=== PATIENT | female | born 1945 | race Caucasian/White ===

== ENCOUNTER 2017-04-04 20:08 | Emergency (ER) | payer MEDICARE ==
[2017-04-04 20:16] VITALS: TEMP 97.9
--- NOTE | 2017-04-04 21:18 | C.PDOC ---
History Of Present Illness 71 year old female with a Hx IDDM who presents to the ER after an episode of 5 minutes of diminished mental status. Patient states she had slurred speech and was not able to talk. Patient reports her condition improved after drinking some juice; denies weakness, numbness, or fever. Time Seen by Provider: 04/04/17 20:31 Chief Complaint (Nursing): Weakness/Neurological Deficit History Per: Patient History/Exam Limitations: no limitations Onset/Duration Of Symptoms: Mins, Sudden Onset Current Symptoms Are (Timing): Gone Seizure Or Post-ictal Symptoms: None Fall Associated With With Symptoms: No Recent travel outside of the [place]: No - Symptoms Of CVA Associated Symptoms: Impaired Speech. denies: Seizure Activity, New Vision Deficit(Left), New Vision Deficit(Right), Decreased Ability To Walk, New Confusion, Other Past Medical History Reviewed: Historical Data, Nursing Documentation, Vital Signs Vital Signs: Last Vital Signs Temp 97.9 F 04/04/17 21:56 Pulse 67 04/04/17 21:56 Resp 18 04/04/17 21:56 BP 152/79 H 04/04/17 21:56 Pulse Ox 98 04/04/17 21:56 - Medical History PMH: COPD, HTN, Hypercholesterolemia Surgical History: CABG, Coronary Stent Family History: States: Unknown Family Hx - Social History Hx Alcohol Use: No Hx Substance Use: No Review Of Systems Constitutional: Negative for: Fever Neurological: Positive for: Change in Speech. Negative for: Weakness, Numbness Physical Exam - Physical Exam Appears: Non-toxic, No Acute Distress Skin: Normal Color, Warm, Dry Head: Atraumatic, Normacephalic Eye(s): bilateral: Normal Inspection, PERRL, EOMI Oral Mucosa: Moist Chest: Symmetrical, No Tenderness Cardiovascular: Rhythm Regular, No Murmur Respiratory: Normal Breath Sounds, No Rales, No Rhonchi, No Wheezing Gastrointestinal/Abdominal: Soft, No Tenderness Neurological/Psych: Oriented x3, Normal Speech, Normal Cognition ED Course And Treatment - Laboratory Results Result Diagrams: 04/04/17 21:12 04/04/17 21:12 Lab Interpretation: Abnormal (mild chronic anemia) ECG Interpretation: Abnormal (refused by family) O2 Sat by Pulse Oximetry: 97 (Room air) Pulse Ox Interpretation: Normal - CT Scan/US CT Head Other Rad Studies (CT/US): Read By Radiologist, Radiology Report Reviewed CT/US Interpretation: IMPRESSION: - No acute findings seen within the brain. - See above for remaining findings. Progress Note: Blood work, EKG, and CXR ordered. Reevaluation Time: 21:36 Reassessment Condition: Improved (remains asymptomatic) - Physician Consult Information Outcome Of Conversation: [id number]: d/w Dr. Coreen Claros- PMD- will follow in office tomorrow Medical Decision Making Medical Decision Making: family refused cxr, ekg, UA, and prefers to leave ED and f/u with PMD tomorrow pt asymptomatic and likely smptoms related to transient hypoglycemia in DM relieved by PO juice/fluids FISH[employer] POT Disposition Doctor Will See Patient In The: Office Counseled Patient/Family Regarding: Studies Performed, Diagnosis - Disposition Referrals: Humza Claros MD [Staff Provider] - Disposition: HOME/ ROUTINE Disposition Time: 21:38 Condition: GOOD Additional Instructions: please follow-up with Dr. Claros tomorrow check finger-stick and give juice/soda in case of dip in blood glucose. Instructions: Diabetic Hypoglycemia (ED), Altered Mental Status (ED) Forms: zhouwu (Latvian) - Clinical Impression Clinical Impression: Change in mental state, Hypoglycemia associated with diabetes - Scribe Statement The provider has reviewed the documentation as recorded by the Scribe Tom Ochoa All medical record entries made by the Scribe were at my direction and personally dictated by me. I have reviewed the chart and agree that the record accurately reflects my personal performance of the history, physical exam, medical decision making, and the department course for this patient. I have also personally directed, reviewed, and agree with the discharge instructions and disposition.
[2017-04-04 21:19] LABS: BASO # 0.1 K/uL (0.0-0.2); BASO % 0.7 % (0.0-2.0); EOS # 0.2 K/uL (0.0-0.7); EOS % 2.8 % (0.0-4.0); HEMATOCRIT 30.3 % (34.0-47.0); LYMPH # 2.9 K/uL (1.0-4.3); LYMPH % 32.6 % (20.0-40.0); MEAN CELL VOLUME 86.2 fL (81.0-99.0); MEAN CORPUSCULAR HEMOGLOBIN 28.5 pg (27.0-31.0); MONO # 0.6 K/uL (0.0-0.8); RED CELL DISTRIBUTION WIDTH 14.7 % (11.5-14.5); WHITE BLOOD COUNT 8.8 K/uL (4.8-10.8)
--- NOTE | 2017-04-04 21:22 | CT ---
EXAM: CT Head Without Intravenous Contrast CLINICAL HISTORY: 71 years old, female; Signs and symptoms; Speech disturbance; Additional info: Slurred speech TECHNIQUE: Axial computed tomography images of the head/brain without intravenous contrast. This CT exam was performed using one or more of the following dose reduction techniques: automated exposure control, adjustment of the mA and/or kV according to patient size, and/or use of iterative reconstruction technique. EXAM DATE/TIME: 04/04/2017 8:30 PM COMPARISON: No relevant prior studies available. FINDINGS: BRAIN: Focal areas of low density are seen in the basal ganglia bilaterally and the deep/periventricular white matter, most compatible with multiple old/chronic lacunar infarcts. Areas of hypodensity seen in the white matter bilaterally, nonspecific in appearance, but most likely representing chronic small vessel ischemic changes, in a patient of this age. Diffuse, marked, age-related cortical atrophy and ventriculomegaly. No significant acute abnormality identified. No acute hemorrhage seen within the brain. No acute extra-axial fluid collections visualized. No evidence of significant mass effect within the brain.No CT findings to suggest an acute, large territorial infarct, however, small or early acute infarcts may not be visible on CT. VENTRICLES: See above. BONES/JOINTS: Findings compatible with old/chronic fractures involving the right medial orbital and right orbital floor. SOFT TISSUES: No acute abnormality of the visualized soft tissues is seen. VASCULATURE: Atherosclerotic calcification. SINUSES: Visualized paranasal sinuses appear clear. MASTOID AIR CELLS: Mastoid air cells appear clear. IMPRESSION: - No acute findings seen within the brain. - See above for remaining findings.
[2017-04-04 21:33] LABS: POTASSIUM 4.2 mmol/L (3.6-5.2)
[2017-04-04 21:35] LABS: ALB/GLOB RATIO 1.1 (1.0-2.1); BILIRUBIN,TOTAL 0.6 mg/dL (0.2-1.3); TOTAL PROTEIN 7.2 g/dL (6.3-8.3)
[2017-04-04 21:36] LABS: CALCIUM 8.6 mg/dl (8.6-10.4)
[2017-04-04 21:47] LABS: TROPONIN I 0.082 ng/mL (0.00-0.120)
[2017-04-04 21:57] VITALS: BP 152/79; PULSE 67; RESP 18
[2017-04-06 00:39] VITALS: O2SAT 97
== END 2017-04-04 21:58 | disposition home or self-care (01) ==
LOC: C.ER 20:08
DX: E11.649 Type 2 diabetes mellitus with hypoglycemia without coma (principal); Z79.4 Long term (current) use of insulin; J44.9 Chronic obstructive pulmonary disease, unspecified; I10 Essential (primary) hypertension; E78.00 Pure hypercholesterolemia, unspecified

== ENCOUNTER 2017-12-29 13:00 | Inpatient (IN) | payer MEDICARE ==
[2017-12-29 13:12] VITALS: BMI 16.9
[2017-12-29 13:57] LABS: INR 1.1; PROTHROMBIN TIME 12.3 SECONDS (9.7-12.2)
[2017-12-29 14:04] LABS: BASO % 0.3 % (0.0-2.0); EOS # 0.1 K/uL (0.0-0.7); EOS % 2.1 % (0.0-4.0); LYMPH # 1.6 K/uL (1.0-4.3); MEAN CELL VOLUME 84.6 fL (81.0-99.0); MEAN CORPUSCULAR HEMOGLOBIN 27.3 pg (27.0-31.0); MEAN CORPUSCULAR HGB CONC 32.3 g/dL (33.0-37.0); MONO # 0.3 K/uL (0.0-0.8); MONO % 4.8 % (0.0-10.0); NEUT # 4.1 K/uL (1.8-7.0); NEUT % 66.8 % (50.0-75.0); RBC 4.05 Mil/uL (3.80-5.20); RED CELL DISTRIBUTION WIDTH 17.3 % (11.5-14.5); WHITE BLOOD COUNT 6.1 K/uL (4.8-10.8)
[2017-12-29 14:08] LABS: ALBUMIN 4.3 g/dL (3.5-5.0); CALCIUM 9.3 mg/dl (8.6-10.4)
[2017-12-29 14:17] LABS: TROPONIN I 0.033 ng/mL (0.00-0.120)
--- NOTE | 2017-12-29 14:33 | RAD ---
PROCEDURE: CHEST RADIOGRAPH, 1 VIEW HISTORY: Chest pain COMPARISON: None available. FINDINGS: LUNGS: The lungs are well inflated. There is mild pulmonary venous congestion. PLEURA: No pneumothorax. Suspect small left pleural effusion. CARDIOVASCULAR: There is mild cardiomegaly. Status post CABG. OSSEOUS STRUCTURES: No significant abnormalities. VISUALIZED UPPER ABDOMEN: Normal. OTHER FINDINGS: None. IMPRESSION: The constellation of findings may represent mild congestive heart failure.
--- NOTE | 2017-12-29 15:18 | C.PDOC ---
Time Seen by Provider: 12/29/17 13:22 Chief Complaint (Nursing): Chest Pain History Per: Patient, Family Onset/Duration Of Symptoms: Days (about 2 weeks), Intermittent Episodes Current Symptoms Are (Timing): Worse Severity: Moderate Quality: Pressure, "Pain" Associated Symptoms: Dyspnea Modifying Factors: Other Indicated Below Exacerbating Factors: Exertion Alleviating Factors: Rest Additional History Per: Prior Records Past Medical History Reviewed: Historical Data, Nursing Documentation, Vital Signs Vital Signs: Last Vital Signs Temp 98.2 F 12/29/17 13:10 Pulse 64 12/29/17 13:10 Resp 18 12/29/17 13:10 BP 143/64 12/29/17 13:10 Pulse Ox 100 12/29/17 13:10 - Medical History PMH: COPD, Diabetes, HTN, Hypercholesterolemia Surgical History: CABG (triple bypass 2016), Coronary Stent (x2) Family History: States: Unknown Family Hx - Social History Hx Alcohol Use: No Hx Substance Use: No Review Of Systems Except As Marked, All Systems Reviewed And Found Negative. Constitutional: Negative for: Fever Cardiovascular: Positive for: Chest Pain, Edema Respiratory: Positive for: SOB with Excertion. Negative for: Cough Gastrointestinal: Negative for: Vomiting, Abdominal Pain Musculoskeletal: Negative for: Neck Pain Neurological: Negative for: Weakness, Numbness Physical Exam - Physical Exam Appears: No Acute Distress, Chronically Ill Skin: Warm, Dry Head: Atraumatic, Normacephalic Eye(s): bilateral: PERRL, EOMI Neck: Normal ROM, Supple Cardiovascular: Rhythm Regular Respiratory: Normal Breath Sounds, No Accessory Muscle Use Gastrointestinal/Abdominal: Soft, No Tenderness Back: No CVA Tenderness Extremity: Normal ROM, Pedal Edema Neurological/Psych: Oriented x3, Normal Motor, Normal Sensation ED Course And Treatment - Laboratory Results Result Diagrams: 12/29/17 13:38 12/29/17 13:38 Interpretation Of Abnormal: Elevated BNP ECG: Interpreted By Me, Viewed By Me ECG Rhythm: Sinus Rhythm, ST/T Changes (nonspecific), Nonspecific Changes ECG Interpretation: Abnormal Rate From EC O2 Sat by Pulse Oximetry: 100 Pulse Ox Interpretation: Normal - Radiology CXR: Viewed By Me, Read By Radiologist CXR Interpretation: Yes: Cardiomegaly Progress - Interventions Interventions:: Observation - Medications Administered Oral: Aspirin (Pt took at home prior to arrival) Intravenous: Diuretic - Data Reviewed Data Reviewed: Lab, Diagnostic imaging, EKG, Old records - Patient Status Patient status: Unchanged - Continuity of Care Discussed patient case with:: Patient, Family-HIPPA compliant, ED Nurse, PMD - Patient Plan Patient Plan: Admission, Telemetry Disposition Discussed With : Humza Claros Comment: He accepted pt on his service. Doctor Will See Patient In The: Hospital Counseled Patient/Family Regarding: Studies Performed, Diagnosis - Disposition Disposition: HOSPITALIZED Disposition Time: 15:21 Condition: GUARDED - Clinical Impression Clinical Impression: Exertional chest pain, CHF (congestive heart failure)
--- NOTE | 2017-12-29 18:51 | CP.PCM.HP ---
Past Patient History - Past Medical History & Family History Past Medical History?: Yes - Past Social History Smoking Status: Never Smoked - CARDIAC Hx Cardiac Disorders: Yes Hx Hypercholesterolemia: Yes Hx Hypertension: Yes Hx Peripheral Edema: Yes - PULMONARY Hx Respiratory Disorders: Yes Hx Asthma: Yes Hx Chronic Obstructive Pulmonary Disease (COPD): Yes - NEUROLOGICAL Hx Neurological Disorder: No - HEENT Hx HEENT Problems: Yes Other/Comment: wear glasses for reading - RENAL Hx Chronic Kidney Disease: No - ENDOCRINE/METABOLIC Hx Endocrine Disorders: Yes Hx Diabetes Mellitus Type 2: Yes Hx Hypothyroidism: Yes - HEMATOLOGICAL/ONCOLOGICAL Hx Blood Disorders: No - INTEGUMENTARY Hx Dermatological Problems: Yes Other/Comment: dry,scaly skin on lower legs - MUSCULOSKELETAL/RHEUMATOLOGICAL Hx Musculoskeletal Disorders: Yes Hx Arthritis: Yes Hx Falls: Yes - GASTROINTESTINAL Hx Gastrointestinal Disorders: No - GENITOURINARY/GYNECOLOGICAL Hx Genitourinary Disorders: No - PSYCHIATRIC Hx Psychophysiologic Disorder: No Hx Substance Use: No - SURGICAL HISTORY Hx Surgeries: Yes Hx Coronary Artery Bypass Graft: Yes (triple bypass 2015) Hx Coronary Stent: Yes (x2) - ANESTHESIA Hx Anesthesia: Yes Meds Allergies/Adverse Reactions: Allergies Allergy/AdvReac Type Severity Reaction Status Date / Time No Known Allergies Allergy Verified 04/04/17 20:25 Physical Exam - Constitutional Appears: Well - Head Exam Head Exam: ATRAUMATIC, NORMAL INSPECTION, NORMOCEPHALIC - Eye Exam Eye Exam: EOMI, Normal appearance, PERRL Pupil Exam: NORMAL ACCOMODATION, PERRL - ENT Exam ENT Exam: Mucous Membranes Moist, Normal Exam - Neck Exam Neck exam: Positive for: Normal Inspection - Respiratory Exam Respiratory Exam: Decreased Breath Sounds - Cardiovascular Exam Cardiovascular Exam: REGULAR RHYTHM, +S1, +S2 - GI/Abdominal Exam GI & Abdominal Exam: Diminished Bowel Sounds, Soft - Rectal Exam Rectal Exam: Deferred Results - Vital Signs Recent Vital Signs: Last Vital Signs Temp 98.1 F 12/29/17 17:10 Pulse 72 12/29/17 17:35 Resp 20 12/29/17 17:10 BP 155/83 H 12/29/17 17:10 Pulse Ox 96 12/29/17 17:10 - Labs Result Diagrams: 12/29/17 13:38 12/29/17 13:38 Labs: Laboratory Results - last 24 hr 12/29/17 12/29/17 12/29/17 13:38 13:38 13:38 WBC 6.1 RBC 4.05 Hgb 11.0 Hct 34.2 MCV 84.6 MCH 27.3 MCHC 32.3 L RDW 17.3 H Plt Count 137 MPV 10.0 Neut % (Auto) 66.8 Lymph % (Auto) 26.0 [place] % (Auto) 4.8 Eos % (Auto) 2.1 Baso % (Auto) 0.3 Neut # (Auto) 4.1 Lymph # (Auto) 1.6 [place] # (Auto) 0.3 Eos # (Auto) 0.1 Baso # (Auto) 0.0 PT 12.3 H INR 1.1 APTT 30 Sodium 141 Potassium 4.4 Chloride 99 Carbon Dioxide 27 Anion Gap 20 BUN 34 H Creatinine 1.3 H Est GFR ( Amer) 48 Est GFR (Non-Af Amer) 40 Random Glucose 253 H Calcium 9.3 Total Bilirubin 0.7 AST 26 ALT 16 Alkaline Phosphatase 76 Troponin I 0.0330 NT-Pro-B Natriuret Pep 9800 H Total Protein 8.5 H Albumin 4.3 Globulin 4.2 H Albumin/Globulin Ratio 1.0
[2017-12-29 22:24] LABS: CK-MB 4.06 ng/mL (0.0-3.38); TROPONIN I 0.032 ng/mL (0.00-0.120)
[2017-12-30] MEDS: Levothyroxine 75 MCG TAB PO SCH (06:27)
[2017-12-30] MEDS: (Novolog) Insulin Aspart, Recombinant 100 u/ml 10 ml vial SC SCH ×5 (08:18→21:25)
[2017-12-30] MEDS: Aspirin 325 mg EC Tablets PO SCH (09:38)
[2017-12-30] MEDS: Multiple Vitamins Tab PO SCH (09:39)
[2017-12-30] MEDS: Enoxaparin 40 mg Syringe SC SCH (09:43)
--- NOTE | 2017-12-30 10:32 | CP.PCM.CON ---
History of Present Illness - History of Present Illness History of Present Illness: CC: CHF HPI: 72 year old female with the following chronic medical problems 1. Acute on chronic systolic CHF 2. ASHD s/p CABG 2015 3. DM chronic and controlled She is reporting several weeks of worsening dyspena on exertion. Progressive orthopnea. Atypical chest pain in sternotomy site. Review of Systems - Review of Systems All systems: reviewed and no additional remarkable complaints except Past Patient History - Past Medical History & Family History Past Medical History?: Yes - Past Social History Smoking Status: Never Smoked - CARDIAC Hx Cardiac Disorders: Yes Hx Hypercholesterolemia: Yes Hx Hypertension: Yes Hx Peripheral Edema: Yes - PULMONARY Hx Respiratory Disorders: Yes Hx Asthma: Yes Hx Chronic Obstructive Pulmonary Disease (COPD): Yes - NEUROLOGICAL Hx Neurological Disorder: No - HEENT Hx HEENT Problems: Yes Other/Comment: wear glasses for reading - RENAL Hx Chronic Kidney Disease: No - ENDOCRINE/METABOLIC Hx Endocrine Disorders: Yes Hx Diabetes Mellitus Type 2: Yes Hx Hypothyroidism: Yes - HEMATOLOGICAL/ONCOLOGICAL Hx Blood Disorders: No - INTEGUMENTARY Hx Dermatological Problems: Yes Other/Comment: dry,scaly skin on lower legs - MUSCULOSKELETAL/RHEUMATOLOGICAL Hx Musculoskeletal Disorders: Yes Hx Arthritis: Yes Hx Falls: Yes - GASTROINTESTINAL Hx Gastrointestinal Disorders: No - GENITOURINARY/GYNECOLOGICAL Hx Genitourinary Disorders: No - PSYCHIATRIC Hx Psychophysiologic Disorder: No Hx Substance Use: No - SURGICAL HISTORY Hx Surgeries: Yes Hx Coronary Artery Bypass Graft: Yes (triple bypass 2015) Hx Coronary Stent: Yes (x2) - ANESTHESIA Hx Anesthesia: Yes Meds Allergies/Adverse Reactions: Allergies Allergy/AdvReac Type Severity Reaction Status Date / Time No Known Allergies Allergy Verified 04/04/17 20:25 - Medications Medications: Current Medications Aspirin (Ecotrin) 325 mg PO DAILY [facility] Last Admin: 12/30/17 09:38 Dose: 325 mg Enoxaparin Sodium (Lovenox) 40 mg SC DAILY [facility] Last Admin: 12/30/17 09:43 Dose: 40 mg Furosemide (Lasix) 40 mg PO BID [facility] Last Admin: 12/30/17 09:38 Dose: 40 mg Insulin Aspart (Novolog) 1 unit SC ACHS [facility] PRN Reason: Protocol Last Admin: 12/30/17 08:18 Dose: 1 unit Levothyroxine Sodium (Synthroid) 75 mcg PO DAILY@0630 [facility] Last Admin: 12/30/17 06:27 Dose: 75 mcg Losartan Potassium (Cozaar) 100 mg PO DAILY [facility] Last Admin: 12/30/17 09:39 Dose: 100 mg Metformin HCl (Glucophage) 500 mg PO DAILY@0800 [facility] Last Admin: 12/30/17 08:17 Dose: 500 mg Metoprolol Tartrate (Lopressor) 25 mg PO DAILY [facility] Last Admin: 12/30/17 09:38 Dose: 25 mg Multivitamins (Hexavitamin) 1 tab PO DAILY [facility] Last Admin: 12/30/17 09:39 Dose: 1 tab Pneumococcal Polyvalent Vaccine (Pneumovax 23 Vaccine) 0.5 ml IM .ONCE ONE Stop: 12/31/17 19:27 Rosuvastatin Calcium (Crestor) 10 mg PO [facility] Last Admin: 12/29/17 21:22 Dose: 10 mg Sitagliptin Phosphate (Januvia) 100 mg PO [facility] Last Admin: 12/29/17 21:22 Dose: 100 mg Torsemide (Demadex) 20 mg PO DAILY [facility] Last Admin: 12/30/17 09:39 Dose: 20 mg Physical Exam - Constitutional Appears: Well, Non-toxic - Head Exam Head Exam: ATRAUMATIC, NORMAL INSPECTION - Eye Exam Eye Exam: PERRL. absent: Scleral icterus - ENT Exam ENT Exam: Normal External Ear Exam Additional comments: Poor dentition - Neck Exam Neck exam: Negative for: Lymphadenopathy, Thyromegaly - Respiratory Exam Respiratory Exam: Decreased Breath Sounds, Rales, NORMAL BREATHING PATTERN - Cardiovascular Exam Cardiovascular Exam: REGULAR RHYTHM, JVD, RRR, +S1, +S2, +S4, Systolic Murmur Additional comments: +Sternetomy well healed - GI/Abdominal Exam GI & Abdominal Exam: Normal Bowel Sounds. absent: Organomegaly - Extremities Exam Extremities exam: Positive for: pedal pulses present Additional comments: +2 LE edema, stasis dermatitis - Neurological Exam Neurological exam: CN II-XII Intact, Oriented x3 - Psychiatric Exam Psychiatric exam: Normal Affect, Normal Mood Results - Vital Signs Recent Vital Signs: Last Vital Signs Temp 98 F 12/30/17 07:00 Pulse 74 12/30/17 07:00 Resp 20 12/30/17 07:00 BP 152/77 H 12/30/17 09:38 Pulse Ox 97 12/30/17 07:00 - Labs Result Diagrams: 12/29/17 13:38 04/23/18 13:38 Labs: Laboratory Results - last 24 hr 12/29/17 12/29/17 12/29/17 13:38 13:38 13:38 WBC 6.1 RBC 4.05 Hgb 11.0 Hct 34.2 MCV 84.6 MCH 27.3 MCHC 32.3 L RDW 17.3 H Plt Count 137 MPV 10.0 Neut % (Auto) 66.8 Lymph % (Auto) 26.0 [place] % (Auto) 4.8 Eos % (Auto) 2.1 Baso % (Auto) 0.3 Neut # (Auto) 4.1 Lymph # (Auto) 1.6 [place] # (Auto) 0.3 Eos # (Auto) 0.1 Baso # (Auto) 0.0 PT 12.3 H INR 1.1 APTT 30 Sodium 141 Potassium 4.4 Chloride 99 Carbon Dioxide 27 Anion Gap 20 BUN 34 H Creatinine 1.3 H Est GFR ( Amer) 48 Est GFR (Non-Af Amer) 40 POC Glucose (mg/dL) Random Glucose 253 H Calcium 9.3 Total Bilirubin 0.7 AST 26 ALT 16 Alkaline Phosphatase 76 Total Creatine Kinase CK-MB (Mass) Troponin I 0.0330 NT-Pro-B Natriuret Pep 9800 H Total Protein 8.5 H Albumin 4.3 Globulin 4.2 H Albumin/Globulin Ratio 1.0 12/29/17 12/29/17 12/30/17 21:23 21:54 06:27 WBC RBC Hgb Hct MCV MCH MCHC RDW Plt Count MPV Neut % (Auto) Lymph % (Auto) [place] % (Auto) Eos % (Auto) Baso % (Auto) Neut # (Auto) Lymph # (Auto) [place] # (Auto) Eos # (Auto) Baso # (Auto) PT INR APTT Sodium Potassium Chloride Carbon Dioxide Anion Gap BUN Creatinine Est GFR ( Amer) Est GFR (Non-Af Amer) POC Glucose (mg/dL) 203 H 189 H Random Glucose Calcium Total Bilirubin AST ALT Alkaline Phosphatase Total Creatine Kinase 87 CK-MB (Mass) 4.06 H Troponin I 0.0320 NT-Pro-B Natriuret Pep Total Protein Albumin Globulin Albumin/Globulin Ratio - EKG Data EKG Interpreted by: Myself EKG shows normal: Sinus rhythm, QRS complexes (Inferior wall Q waves, anterior septal poor R wave progression), ST-T waves (Non specific st t changes) - Imaging and Cardiology Chest x-ray Status: Image reviewed by me Additional comment: Increased vascular congestion, no infiltrates Assessment & Plan - Assessment and Plan (Free Text) Assessment: 72 year old female with acute on chronic systolic CHF IV toresemide, add 5mg metalazone x 1 dose today, RAAS blockade. Check 2D echo DM insulin needs better control ASHD asprin, high dose statin - Date & Time Date: 12/30/17 Time: 10:36
[2017-12-30 11:20] LABS: CK-MB 2.08 ng/mL (0.0-3.38); TROPONIN I 0.031 ng/mL (0.00-0.120)
[2017-12-30] MEDS: metOLazone 5 MG TAB PO SCH (12:00)
--- NOTE | 2017-12-30 13:19 | CP.PCM.PN ---
Subjective - Date & Time of Evaluation Date of Evaluation: 12/30/17 Time of Evaluation: 11:20 - Subjective Subjective: clinically same Objective - Vital Signs/Intake and Output Vital Signs (last 24 hours): Temp Pulse Resp BP Pulse Ox 98 F 69 20 152/77 H 97 12/30/17 07:00 12/30/17 09:00 12/30/17 07:00 12/30/17 09:38 12/30/17 07:00 Intake and Output: 12/30/17 12/30/17 06:59 18:59 Intake Total 118 Balance 118 - Medications Medications: Current Medications Aspirin (Ecotrin) 325 mg PO DAILY [facility] Last Admin: 12/30/17 09:38 Dose: 325 mg Enoxaparin Sodium (Lovenox) 40 mg SC DAILY [facility] Last Admin: 12/30/17 09:43 Dose: 40 mg Furosemide (Lasix) 40 mg PO BID [facility] Last Admin: 12/30/17 09:38 Dose: 40 mg Insulin Aspart (Novolog) 1 unit SC [facility] PRN Reason: Protocol Last Admin: 12/30/17 12:00 Dose: 1 unit Levothyroxine Sodium (Synthroid) 75 mcg PO DAILY@0630 [facility] Last Admin: 12/30/17 06:27 Dose: 75 mcg Losartan Potassium (Cozaar) 100 mg PO DAILY [facility] Last Admin: 12/30/17 09:39 Dose: 100 mg Metformin HCl (Glucophage) 500 mg PO DAILY@0800 [facility] Last Admin: 12/30/17 08:17 Dose: 500 mg Metolazone (Zaroxolyn) 5 mg PO DAILY [facility] Last Admin: 12/30/17 12:00 Dose: 5 mg Metoprolol Tartrate (Lopressor) 25 mg PO DAILY [facility] Last Admin: 12/30/17 09:38 Dose: 25 mg Multivitamins (Hexavitamin) 1 tab PO DAILY [facility] Last Admin: 12/30/17 09:39 Dose: 1 tab Pneumococcal Polyvalent Vaccine (Pneumovax 23 Vaccine) 0.5 ml IM .ONCE ONE Stop: 12/31/17 19:27 Rosuvastatin Calcium (Crestor) 10 mg PO [facility] Last Admin: 12/29/17 21:22 Dose: 10 mg Sitagliptin Phosphate (Januvia) 100 mg PO [facility] Last Admin: 12/29/17 21:22 Dose: 100 mg Torsemide (Demadex) 20 mg PO DAILY [facility] Last Admin: 12/30/17 09:39 Dose: 20 mg - Labs Labs: 12/29/17 13:38 12/29/17 13:38 PT 12.3 SECONDS (9.7-12.2) H 12/29/17 13:38 INR 1.1 12/29/17 13:38 APTT 30 SECONDS (21-34) 12/29/17 13:38 - Constitutional Appears: Well - Head Exam Head Exam: ATRAUMATIC, NORMAL INSPECTION, NORMOCEPHALIC - Eye Exam Eye Exam: EOMI, Normal appearance, PERRL Pupil Exam: NORMAL ACCOMODATION, PERRL - ENT Exam ENT Exam: Mucous Membranes Moist, Normal Exam - Neck Exam Neck Exam: Full ROM, Normal Inspection. absent: Lymphadenopathy - Respiratory Exam Respiratory Exam: Decreased Breath Sounds - Cardiovascular Exam Cardiovascular Exam: REGULAR RHYTHM, +S1, +S2 - GI/Abdominal Exam GI & Abdominal Exam: Soft, Diminished Bowel Sounds - Rectal Exam Rectal Exam: Deferred
[2017-12-30 20:11] LABS: CK-MB 1.62 ng/mL (0.0-3.38); TROPONIN I 0.027 ng/mL (0.00-0.120)
--- NOTE | 2017-12-30 21:16 | CARD ---
APPROVED REPORT EXAM: Two-dimensional and M-mode echocardiogram with Doppler and color Doppler. Other Information Quality : GoodRhythm : INDICATION Dyspnea Chest Pain Congestive Heart Failure 2D DIMENSIONS IVSd0.9 (0.7-1.1cm)LVDd4.1 (3.9-5.9cm) PWd1.0 (0.7-1.1cm)LVDs3.1 (2.5-4.0cm) FS (%) 25.8 %LVEF (%)40.0 (>50%) M-Mode DIMENSIONS Left Atrium (MM)3.74 (2.5-4.0cm)Aortic Root2.90 (2.2-3.7cm) Aortic Cusp Exc.1.53 (1.5-2.0cm) Mitral Valve MV E Radcyhpt265.9cm/sMV A Fglwetwl85.2cm/sE/A ratio2.8 TDI E/Lateral E'0.0E/Medial E'0.0 Tricuspid Valve TR Peak [id number]/sTR Peak Gr.42mmHg LEFT VENTRICLE The left ventricle is normal size. There is normal left ventricular wall thickness. The left ventricular function is severely reduced, with diffuse hypokinesis. The left ventricular ejection fraction is about 25%. The septal, apical and inferoapical nails are akinetic. Transmitral Doppler flow pattern is Grade III-reversible restrictive diastolic dysfunction. No left ventricle thrombus noted on this study. There is no ventricular septal defect visualized. There is no left ventricular aneurysm. There is no mass noted in the left ventricle. RIGHT VENTRICLE The right ventricle is normal mildly dilated There is normal right ventricular wall thickness. The right ventricular systolic function is mildy reduced. ATRIA The left atrial volume index is mildly increased. The right atrium size is moderately dilated. The interatrial septum is intact with no evidence for an atrial septal defect. AORTIC VALVE The aortic valve is normal in structure and function. No aortic regurgitation is present. There is no aortic valvular stenosis. There is no aortic valvular vegetation. MITRAL VALVE The mitral valve is normal in structure and function. There is no evidence of mitral valve prolapse. There is no mitral valve stenosis. There is no mitral valve regurgitation noted. TRICUSPID VALVE The tricuspid valve is normal in structure and function. There is moderae tricuspid valve regurgitation noted. Estimated PA systolic pressure is 55-60 mm Hg. There is no tricuspid valve prolapse or vegetation. There is no tricuspid valve stenosis. PULMONIC VALVE The pulmonary valve is normal in structure and function. There is no pulmonic valvular regurgitation. There is no pulmonic valvular stenosis. GREAT VESSELS The aortic root is normal in size. The ascending aorta is normal in size. The pulmonary artery is normal. The IVC is normal in size and collapses >50% with inspiration. PERICARDIAL EFFUSION The pericardium appears normal. There is no pleural effusion. <Conclusion> The left ventricular function is severely reduced, with diffuse hypokinesis. The left ventricular ejection fraction is about 25%. The septal, apical and inferoapical nails are akinetic. Transmitral Doppler flow pattern is Grade III-reversible restrictive diastolic dysfunction. Moderate to severe pulmonary HTN.
--- NOTE | 2017-12-30 21:53 | CARD ---
APPROVED REPORT EKG Measurement Heart [id number] <Conclusion> Normal sinus rhythm Possible Left atrial enlargement Anteroseptal infarct, age undetermined T wave abnormality, consider lateral ischemia Abnormal ECG
[2017-12-31] MEDS: Levothyroxine 75 MCG TAB PO SCH (06:22)
[2017-12-31] MEDS: (Novolog) Insulin Aspart, Recombinant 100 u/ml 10 ml vial SC SCH ×5 (07:55→21:47)
[2017-12-31] MEDS: Multiple Vitamins Tab PO SCH (09:51)
[2017-12-31] MEDS: Enoxaparin 40 mg Syringe SC SCH (09:51)
[2017-12-31] MEDS: metOLazone 5 MG TAB PO SCH (10:17)
[2017-12-31] MEDS: Aspirin 325 mg EC Tablets PO SCH (10:17)
--- NOTE | 2017-12-31 15:12 | CP.PCM.PN ---
Subjective - Date & Time of Evaluation Date of Evaluation: 12/31/17 Time of Evaluation: 15:11 - Subjective Subjective: Feels better Objective - Vital Signs/Intake and Output Vital Signs (last 24 hours): Temp Pulse Resp BP Pulse Ox 97.9 F 70 20 145/79 97 12/31/17 08:12 12/31/17 13:58 12/31/17 08:12 12/31/17 09:51 12/31/17 08:12 Intake and Output: 12/31/17 12/31/17 06:59 18:59 Intake Total 580 500 Balance 580 500 - Medications Medications: Current Medications Aspirin (Ecotrin) 325 mg PO DAILY [facility] Last Admin: 12/31/17 10:17 Dose: 325 mg Enoxaparin Sodium (Lovenox) 40 mg SC DAILY [facility] Last Admin: 12/31/17 09:51 Dose: 40 mg Furosemide (Lasix) 40 mg PO BID [facility] Last Admin: 12/31/17 09:51 Dose: 40 mg Insulin Aspart (Novolog) 0 unit SC [facility] PRN Reason: Protocol Last Admin: 12/31/17 12:50 Dose: 2 unit Levothyroxine Sodium (Synthroid) 75 mcg PO DAILY@0630 [facility] Last Admin: 12/31/17 06:22 Dose: 75 mcg Losartan Potassium (Cozaar) 100 mg PO DAILY [facility] Last Admin: 12/31/17 09:51 Dose: 100 mg Metformin HCl (Glucophage) 500 mg PO DAILY@0800 [facility] Last Admin: 12/31/17 07:55 Dose: 500 mg Metolazone (Zaroxolyn) 5 mg PO DAILY [facility] Last Admin: 12/31/17 10:17 Dose: 5 mg Metoprolol Tartrate (Lopressor) 25 mg PO DAILY [facility] Last Admin: 12/31/17 09:51 Dose: 25 mg Multivitamins (Hexavitamin) 1 tab PO DAILY [facility] Last Admin: 12/31/17 09:51 Dose: 1 tab Pneumococcal Polyvalent Vaccine (Pneumovax 23 Vaccine) 0.5 ml IM .ONCE ONE Stop: 12/31/17 19:27 Rosuvastatin Calcium (Crestor) 10 mg PO [facility] Last Admin: 12/30/17 21:25 Dose: 10 mg Sitagliptin Phosphate (Januvia) 100 mg PO [facility] Last Admin: 12/30/17 21:25 Dose: 100 mg Torsemide (Demadex) 20 mg PO DAILY [facility] Last Admin: 12/31/17 10:17 Dose: 20 mg - Labs Labs: 12/29/17 13:38 12/29/17 13:38 PT 12.3 SECONDS (9.7-12.2) H 12/29/17 13:38 INR 1.1 12/29/17 13:38 APTT 30 SECONDS (21-34) 12/29/17 13:38 - Constitutional Appears: Well, Non-toxic - Respiratory Exam Respiratory Exam: Clear to Ausculation Bilateral, NORMAL BREATHING PATTERN - Cardiovascular Exam Cardiovascular Exam: REGULAR RHYTHM, RRR, +S1, +S2. absent: JVD Additional comments: 1+ LE edema - GI/Abdominal Exam GI & Abdominal Exam: Normal Bowel Sounds. absent: Organomegaly Assessment and Plan - Assessment and Plan (Free Text) Assessment: 72 year old female with acute on chronic systolic CHF 2D echo images viewed by me show severe LV dysfunction, Change metoprolol to Coreg, start aldactone continue ARB, Change diuretics to PO, add another day of metalazone. DM insulin needs better control ASHD asprin, high dose statin
--- NOTE | 2017-12-31 17:27 | CP.PCM.PN ---
Subjective - Date & Time of Evaluation Date of Evaluation: 12/31/17 Time of Evaluation: 10:40 - Subjective Subjective: clinically same Objective - Vital Signs/Intake and Output Vital Signs (last 24 hours): Temp Pulse Resp BP Pulse Ox 98.3 F 66 20 147/77 97 12/31/17 15:00 12/31/17 15:00 12/31/17 15:00 12/31/17 15:00 12/31/17 15:00 Intake and Output: 12/31/17 12/31/17 06:59 18:59 Intake Total 580 500 Balance 580 500 - Medications Medications: Current Medications Aspirin (Ecotrin) 325 mg PO DAILY [facility] Last Admin: 12/31/17 10:17 Dose: 325 mg Enoxaparin Sodium (Lovenox) 40 mg SC DAILY [facility] Last Admin: 12/31/17 09:51 Dose: 40 mg Furosemide (Lasix) 40 mg PO BID [facility] Last Admin: 12/31/17 09:51 Dose: 40 mg Insulin Aspart (Novolog) 0 unit SC [facility] PRN Reason: Protocol Last Admin: 12/31/17 12:50 Dose: 2 unit Levothyroxine Sodium (Synthroid) 75 mcg PO DAILY@0630 [facility] Last Admin: 12/31/17 06:22 Dose: 75 mcg Losartan Potassium (Cozaar) 100 mg PO DAILY [facility] Last Admin: 12/31/17 09:51 Dose: 100 mg Metformin HCl (Glucophage) 500 mg PO DAILY@0800 [facility] Last Admin: 12/31/17 07:55 Dose: 500 mg Metolazone (Zaroxolyn) 5 mg PO DAILY [facility] Last Admin: 12/31/17 10:17 Dose: 5 mg Metoprolol Tartrate (Lopressor) 25 mg PO DAILY [facility] Last Admin: 12/31/17 09:51 Dose: 25 mg Multivitamins (Hexavitamin) 1 tab PO DAILY [facility] Last Admin: 12/31/17 09:51 Dose: 1 tab Pneumococcal Polyvalent Vaccine (Pneumovax 23 Vaccine) 0.5 ml IM .ONCE ONE Stop: 12/31/17 19:27 Rosuvastatin Calcium (Crestor) 10 mg PO [facility] Last Admin: 12/30/17 21:25 Dose: 10 mg Sitagliptin Phosphate (Januvia) 100 mg PO [facility] Last Admin: 12/30/17 21:25 Dose: 100 mg Torsemide (Demadex) 20 mg PO DAILY [facility] Last Admin: 12/31/17 10:17 Dose: 20 mg - Labs Labs: 12/29/17 13:38 12/29/17 13:38 PT 12.3 SECONDS (9.7-12.2) H 12/29/17 13:38 INR 1.1 12/29/17 13:38 APTT 30 SECONDS (21-34) 12/29/17 13:38 - Constitutional Appears: Well - Head Exam Head Exam: ATRAUMATIC, NORMAL INSPECTION, NORMOCEPHALIC - Eye Exam Eye Exam: EOMI, Normal appearance, PERRL Pupil Exam: NORMAL ACCOMODATION, PERRL - ENT Exam ENT Exam: Mucous Membranes Moist, Normal Exam - Neck Exam Neck Exam: Full ROM, Normal Inspection. absent: Lymphadenopathy - Respiratory Exam Respiratory Exam: Decreased Breath Sounds - Cardiovascular Exam Cardiovascular Exam: REGULAR RHYTHM, +S1, +S2 - GI/Abdominal Exam GI & Abdominal Exam: Soft, Diminished Bowel Sounds - Rectal Exam Rectal Exam: Deferred
[2017-12-31] MEDS ORDERED: Pneumococcal 23-Valent Vaccine IM ONE (19:26)
[2018-01-01] MEDS: Levothyroxine 75 MCG TAB PO SCH (06:20)
[2018-01-01] MEDS: (Novolog) Insulin Aspart, Recombinant 100 u/ml 10 ml vial SC SCH ×4 (08:07→21:27)
[2018-01-01] MEDS: Enoxaparin 40 mg Syringe SC SCH (09:00)
[2018-01-01] MEDS: Multiple Vitamins Tab PO SCH (09:26)
[2018-01-01] MEDS: metOLazone 5 MG TAB PO SCH (09:26)
[2018-01-01] MEDS: Aspirin 325 mg EC Tablets PO SCH (09:26)
--- NOTE | 2018-01-01 11:52 | CP.PCM.PN ---
Subjective - Date & Time of Evaluation Date of Evaluation: 01/01/18 Time of Evaluation: 11:44 - Subjective Subjective: Presented with Acute CHF HPI: 72 year old female with the following chronic medical problems 1. Acute on chronic systolic CHF 2. ASHD s/p CABG 2016 3. DM chronic and controlled 4. Chroinc recurrent Leg edema 5. Neuropathy LE's Currently NYHA 2 LE edema present No CP No fever No N/V Alert and mentating well Objective - Vital Signs/Intake and Output Vital Signs (last 24 hours): Temp Pulse Resp BP Pulse Ox 97.8 F 67 18 127/66 96 01/01/18 07:00 01/01/18 10:00 01/01/18 10:00 01/01/18 10:00 01/01/18 07:00 Intake and Output: 01/01/18 01/01/18 06:59 18:59 Intake Total 510 Balance 510 - Medications Medications: Current Medications Aspirin (Ecotrin) 325 mg PO DAILY [facility] Last Admin: 01/01/18 09:26 Dose: 325 mg Enoxaparin Sodium (Lovenox) 40 mg SC DAILY [facility] Last Admin: 01/01/18 09:00 Dose: Not Given Furosemide (Lasix) 40 mg PO BID [facility] Last Admin: 01/01/18 09:26 Dose: 40 mg Insulin Aspart (Novolog) 0 unit SC [facility] PRN Reason: Protocol Last Admin: 01/01/18 08:07 Dose: 1 unit Levothyroxine Sodium (Synthroid) 75 mcg PO DAILY@0630 [facility] Last Admin: 01/01/18 06:20 Dose: 75 mcg Losartan Potassium (Cozaar) 100 mg PO DAILY [facility] Last Admin: 01/01/18 09:26 Dose: 100 mg Metformin HCl (Glucophage) 500 mg PO DAILY@0800 [facility] Last Admin: 01/01/18 08:06 Dose: 500 mg Metolazone (Zaroxolyn) 5 mg PO DAILY [facility] Last Admin: 01/01/18 09:26 Dose: 5 mg Metoprolol Tartrate (Lopressor) 25 mg PO DAILY [facility] Last Admin: 01/01/18 09:26 Dose: 25 mg Multivitamins (Hexavitamin) 1 tab PO DAILY [facility] Last Admin: 01/01/18 09:26 Dose: 1 tab Rosuvastatin Calcium (Crestor) 10 mg PO HS [facility] Last Admin: 12/31/17 22:03 Dose: 10 mg Sitagliptin Phosphate (Januvia) 100 mg PO HS [facility] Last Admin: 12/31/17 22:03 Dose: 100 mg Torsemide (Demadex) 20 mg PO DAILY [facility] Last Admin: 01/01/18 09:26 Dose: 20 mg - Labs Labs: 12/29/17 13:38 12/29/17 13:38 PT 12.3 SECONDS (9.7-12.2) H 12/29/17 13:38 INR 1.1 12/29/17 13:38 APTT 30 SECONDS (21-34) 12/29/17 13:38 - Constitutional Appears: Chronically Ill - Head Exam Head Exam: ATRAUMATIC, NORMAL INSPECTION, NORMOCEPHALIC - Eye Exam Eye Exam: EOMI, Normal appearance, PERRL - ENT Exam ENT Exam: Mucous Membranes Moist, Normal Oropharynx - Neck Exam Neck Exam: Full ROM. absent: Normal Inspection (+ JVD) - Respiratory Exam Respiratory Exam: Clear to Ausculation Bilateral, Rales (bases B/L). absent: Wheezes - Cardiovascular Exam Cardiovascular Exam: REGULAR RHYTHM, +S1, +S2. absent: Murmur - GI/Abdominal Exam GI & Abdominal Exam: Soft, Normal Bowel Sounds. absent: Tenderness - Extremities Exam Extremities Exam: Calf Tenderness. absent: Normal Inspection (2+ edema in legs) Assessment and Plan - Assessment and Plan (Free Text) Assessment: ADHF Acute on chronic diastolic and systolic LV systolic dysfunction Hx of CABG 2016 CAD HTN LIPIDS DM CKD 2 Peripheral neuropathy <------------------------------------------------> Aspirin (Ecotrin) 325 mg PO DAILY [facility] Last Admin: 01/01/18 09:26 Dose: 325 mg Enoxaparin Sodium (Lovenox) 40 mg SC DAILY [facility] Last Admin: 01/01/18 09:00 Dose: Not Given Furosemide (Lasix) 40 mg PO BID [facility] Last Admin: 01/01/18 09:26 Dose: 40 mg Losartan Potassium (Cozaar) 100 mg PO DAILY [facility] Last Admin: 01/01/18 09:26 Dose: 100 mg Metolazone (Zaroxolyn) 5 mg PO DAILY [facility] Last Admin: 01/01/18 09:26 Dose: 5 mg Metoprolol Tartrate (Lopressor) 25 mg PO DAILY [facility] Last Admin: 01/01/18 09:26 Dose: 25 mg Rosuvastatin Calcium (Crestor) 10 mg PO HS [facility] Last Admin: 12/31/17 22:03 Dose: 10 mg Torsemide (Demadex) 20 mg PO DAILY [facility] Last Admin: 01/01/18 09:26 Dose: 20 mg Plan: Given patients fragile state, CKD 2 and ADHF with volume overload: I have discussed with family at length regards future options. > We will continue to optimize CHF therapy ---> Change Metoprolol 6.25 BID and inc in 2 weeks ---> Cont losartan 100 ---> Add aldactone 25 daily (Monitor K+) and creat ---> Keep Mg > 2 ---> She is on a complex diuretic RX: (Lasix 40 BID, Torsemide 20mg daily, Metolazone 5 QD) check BMP and Mg Outpatient stress test to determine if repeat cath is necessary. Also discussion regards AICD will be made based on LV recovery.
[2018-01-01 14:08] LABS: BASO % 0.7 % (0.0-2.0); EOS # 0.1 K/uL (0.0-0.7); EOS % 2.3 % (0.0-4.0); LYMPH # 1.5 K/uL (1.0-4.3); LYMPH % 23.8 % (20.0-40.0); MEAN CELL VOLUME 84.4 fL (81.0-99.0); MEAN CORPUSCULAR HEMOGLOBIN 27.8 pg (27.0-31.0); MEAN CORPUSCULAR HGB CONC 32.9 g/dL (33.0-37.0); MEAN PLATELET VOLUME 9.8 fL (7.2-11.7); MONO # 0.5 K/uL (0.0-0.8); MONO % 7.4 % (0.0-10.0); NEUT # 4.1 K/uL (1.8-7.0); NEUT % 65.8 % (50.0-75.0); RBC 4.34 Mil/uL (3.80-5.20); RED CELL DISTRIBUTION WIDTH 16.5 % (11.5-14.5); WHITE BLOOD COUNT 6.3 K/uL (4.8-10.8)
[2018-01-01 14:44] LABS: CALCIUM 9.8 mg/dl (8.6-10.4)
[2018-01-01 15:38] VITALS: RESP 20
--- NOTE | 2018-01-01 16:51 | CP.PCM.PN ---
Subjective - Date & Time of Evaluation Date of Evaluation: 01/01/18 Time of Evaluation: 10:20 - Subjective Subjective: clinically same Objective - Vital Signs/Intake and Output Vital Signs (last 24 hours): Temp Pulse Resp BP Pulse Ox 97.8 F 64 20 138/80 96 01/01/18 15:00 01/01/18 15:00 01/01/18 15:00 01/01/18 15:00 01/01/18 15:00 Intake and Output: 01/01/18 01/01/18 06:59 18:59 Intake Total 510 600 Balance 510 600 - Medications Medications: Current Medications Aspirin (Ecotrin) 325 mg PO DAILY [facility] Last Admin: 01/01/18 09:26 Dose: 325 mg Carvedilol (Coreg) 12.5 mg PO BID [facility] Enoxaparin Sodium (Lovenox) 40 mg SC DAILY [facility] Last Admin: 01/01/18 09:00 Dose: Not Given Furosemide (Lasix) 40 mg PO BID [facility] Last Admin: 01/01/18 09:26 Dose: 40 mg Insulin Aspart (Novolog) 0 unit SC [facility] PRN Reason: Protocol Last Admin: 01/01/18 12:31 Dose: 3 unit Levothyroxine Sodium (Synthroid) 75 mcg PO DAILY@0630 [facility] Last Admin: 01/01/18 06:20 Dose: 75 mcg Losartan Potassium (Cozaar) 100 mg PO DAILY [facility] Last Admin: 01/01/18 09:26 Dose: 100 mg Metformin HCl (Glucophage) 500 mg PO DAILY@0800 [facility] Last Admin: 01/01/18 08:06 Dose: 500 mg Metolazone (Zaroxolyn) 5 mg PO DAILY [facility] Last Admin: 01/01/18 09:26 Dose: 5 mg Multivitamins (Hexavitamin) 1 tab PO DAILY [facility] Last Admin: 01/01/18 09:26 Dose: 1 tab Rosuvastatin Calcium (Crestor) 10 mg PO [facility] Last Admin: 12/31/17 22:03 Dose: 10 mg Sitagliptin Phosphate (Januvia) 100 mg PO HS [facility] Last Admin: 12/31/17 22:03 Dose: 100 mg Spironolactone (Aldactone) 25 mg PO DAILY [facility] Torsemide (Demadex) 20 mg PO DAILY [facility] Last Admin: 01/01/18 09:26 Dose: 20 mg - Labs Labs: 01/01/18 13:59 01/01/18 13:59 PT 12.3 SECONDS (9.7-12.2) H 12/29/17 13:38 INR 1.1 12/29/17 13:38 APTT 30 SECONDS (21-34) 12/29/17 13:38 - Constitutional Appears: Well - Head Exam Head Exam: ATRAUMATIC, NORMAL INSPECTION, NORMOCEPHALIC - Eye Exam Eye Exam: EOMI, Normal appearance, PERRL Pupil Exam: NORMAL ACCOMODATION, PERRL - ENT Exam ENT Exam: Mucous Membranes Moist, Normal Exam - Neck Exam Neck Exam: Full ROM, Normal Inspection. absent: Lymphadenopathy - Respiratory Exam Respiratory Exam: Decreased Breath Sounds - Cardiovascular Exam Cardiovascular Exam: REGULAR RHYTHM, +S1, +S2 - GI/Abdominal Exam GI & Abdominal Exam: Soft, Diminished Bowel Sounds - Rectal Exam Rectal Exam: Deferred
[2018-01-02] MEDS: Levothyroxine 75 MCG TAB PO SCH (05:48)
[2018-01-02 08:18] LABS: BASO % 0.6 % (0.0-2.0); EOS # 0.2 K/uL (0.0-0.7); EOS % 2.9 % (0.0-4.0); HEMOGLOBIN 10.9 g/dL (11.0-16.0); LYMPH # 1.8 K/uL (1.0-4.3); LYMPH % 27.8 % (20.0-40.0); MEAN CELL VOLUME 84.2 fL (81.0-99.0); MEAN CORPUSCULAR HEMOGLOBIN 27.9 pg (27.0-31.0); MEAN CORPUSCULAR HGB CONC 33.1 g/dL (33.0-37.0); MEAN PLATELET VOLUME 10.1 fL (7.2-11.7); MONO # 0.6 K/uL (0.0-0.8); MONO % 9.2 % (0.0-10.0); NEUT # 3.8 K/uL (1.8-7.0); NEUT % 59.5 % (50.0-75.0); RBC 3.93 Mil/uL (3.80-5.20); RED CELL DISTRIBUTION WIDTH 16.2 % (11.5-14.5); WHITE BLOOD COUNT 6.3 K/uL (4.8-10.8)
[2018-01-02] MEDS: (Novolog) Insulin Aspart, Recombinant 100 u/ml 10 ml vial SC SCH ×3 (08:25→17:43)
[2018-01-02 08:32] LABS: CALCIUM 9.3 mg/dl (8.6-10.4)
[2018-01-02] MEDS: Aspirin 325 mg EC Tablets PO SCH (10:31)
[2018-01-02] MEDS: Multiple Vitamins Tab PO SCH (10:31)
[2018-01-02] MEDS: metOLazone 5 MG TAB PO SCH (10:32)
[2018-01-02] MEDS: Enoxaparin 40 mg Syringe SC SCH ×2 (10:33→10:37)
--- NOTE | 2018-01-02 15:41 | PCM.HF ---
Heart Failure Core Measure - Heart Failure Ejection Fraction: Less Than 40 % VASILE Inhibitor Prescribed: No Contraindication/Reason for not providing: ON ARB Beta-Carl Prescribed: None Contraindication/Reason for not providing: METOPROLOL TARTATE BID Angiotensin II Receptor Carl Prescribed: Yes AnticoagulationTherapy for Atrial Fibrillation/Atrialflutter: No Contraindication/Reason for not providing: NO AFIB Aldosterone Antagonist Prescribed: No Contraindication/Reason for not providing: NOT RECOMMENDED PER CARDIO Hydralazine Nitrate Prescribed: No Contraindication/Reason for not providing: ON TRIPLE DIURETIC THERAPY PER CARDIOLOGY Implantable Cardioverter Defibrillator Therapy: No Contraindication/Reason for not providing: OUTPATIENT EVAL FOR AICD Cardiac Resynchronization Therapy Prescribed: No Contraindication/Reason for not providing: OUTPATIENT EVAL FOR AICD - Follow up Will be discharged to: [facility] Facility ([facility]) Follow Up Date (must be within 7 days from discharge): 01/05/18 Follow Up Time: 09:00
--- NOTE | 2018-01-02 15:41 | CP.PCM.PN ---
Subjective - Date & Time of Evaluation Date of Evaluation: 01/02/18 Time of Evaluation: 15:41 - Subjective Subjective: CLEARED FOR D/C TODAY TO [facility] UNDER DR. RENTERIA. CLEARED BY CARDIOLOGY CONSULT WELL; FOR OUTPATIENT F/U AND FURTHER TESTING. SW TO ARRANGE TRANSPORTATION TO [facility]. PLAN FOR D/C DISCUSSED WITH THE PT AND DAUGHTER; THEY ARE IN AGREEMENT AND VERBALIZE UNDERSTANDING. -PLACE UNDER THE SERVICE OF DR. Ada RENTERIA WHILE AT [facility]---CALL UPON ARRIVAL FOR ADMITTING ORDERS. -FOLLOW UP WITH DR. ADAMS OR DR. ASTUDILLO IN THE OFFICE WITHIN 1 WEEK---CALL TO ARRANGE THE APPOINTMENT FROM REHAB TO THE OFFICE. -CONTINUE MEDICATIONS PER THE MED REC. CHANGES CAN BE MADE BY DR. RENTERIA. -MONITOR POTASSIUM LEVEL IS BLOOD PER DR. RENTERIA. -PHYSICAL THERAPY TOLERATED. -FOR FURTHER ORDERS, CONTACT DR. RENTERIA'S OFFICE. Objective - Vital Signs/Intake and Output Vital Signs (last 24 hours): Temp Pulse Resp BP Pulse Ox 97.5 F L 77 20 119/70 94 L 01/02/18 07:20 01/02/18 13:58 01/02/18 07:20 01/02/18 10:32 01/02/18 07:20 Intake and Output: 01/02/18 01/02/18 06:59 18:59 Intake Total 20 720 Balance 20 720 - Medications Medications: Current Medications Aspirin (Ecotrin) 325 mg PO DAILY [facility] Last Admin: 01/02/18 10:31 Dose: 325 mg Carvedilol (Coreg) 12.5 mg PO BID [facility] Last Admin: 01/02/18 10:32 Dose: 12.5 mg Enoxaparin Sodium (Lovenox) 40 mg SC DAILY [facility] Last Admin: 01/02/18 10:37 Dose: 40 mg Furosemide (Lasix) 40 mg PO BID [facility] Last Admin: 01/02/18 10:31 Dose: 40 mg Insulin Aspart (Novolog) 0 unit SC [facility] PRN Reason: Protocol Last Admin: 01/02/18 12:50 Dose: 3 unit Levothyroxine Sodium (Synthroid) 75 mcg PO DAILY@0630 [facility] Last Admin: 01/02/18 05:48 Dose: 75 mcg Losartan Potassium (Cozaar) 100 mg PO DAILY [facility] Last Admin: 01/02/18 10:31 Dose: 100 mg Metformin HCl (Glucophage) 500 mg PO DAILY@0800 [facility] Last Admin: 01/02/18 08:24 Dose: 500 mg Metolazone (Zaroxolyn) 5 mg PO DAILY [facility] Last Admin: 01/02/18 10:32 Dose: 5 mg Multivitamins (Hexavitamin) 1 tab PO DAILY [facility] Last Admin: 01/02/18 10:31 Dose: 1 tab Rosuvastatin Calcium (Crestor) 10 mg PO HS [facility] Last Admin: 01/01/18 21:51 Dose: 10 mg Sitagliptin Phosphate (Januvia) 100 mg PO HS [facility] Last Admin: 01/01/18 21:51 Dose: 100 mg Spironolactone (Aldactone) 25 mg PO DAILY [facility] Last Admin: 01/02/18 10:32 Dose: 25 mg Torsemide (Demadex) 20 mg PO DAILY [facility] Last Admin: 01/02/18 10:32 Dose: 20 mg - Labs Labs: 01/02/18 08:09 01/02/18 08:09 PT 12.3 SECONDS (9.7-12.2) H 12/29/17 13:38 INR 1.1 12/29/17 13:38 APTT 30 SECONDS (21-34) 12/29/17 13:38
[2018-01-02 15:53] VITALS: TEMP 97.6; O2SAT 97
--- NOTE | 2018-01-02 17:39 | CP.PCM.PN ---
Subjective - Date & Time of Evaluation Date of Evaluation: 01/02/18 Time of Evaluation: 09:00 - Subjective Subjective: clinically same Objective - Vital Signs/Intake and Output Vital Signs (last 24 hours): Temp Pulse Resp BP Pulse Ox 97.6 F 73 20 121/69 97 01/02/18 15:06 01/02/18 15:06 01/02/18 15:06 01/02/18 15:06 01/02/18 15:06 Intake and Output: 01/02/18 01/02/18 06:59 18:59 Intake Total 20 720 Balance 20 720 - Medications Medications: Current Medications Aspirin (Ecotrin) 325 mg PO DAILY [facility] Last Admin: 01/02/18 10:31 Dose: 325 mg Carvedilol (Coreg) 12.5 mg PO BID [facility] Last Admin: 01/02/18 10:32 Dose: 12.5 mg Enoxaparin Sodium (Lovenox) 40 mg SC DAILY [facility] Last Admin: 01/02/18 10:37 Dose: 40 mg Furosemide (Lasix) 40 mg PO BID [facility] Last Admin: 01/02/18 10:31 Dose: 40 mg Insulin Aspart (Novolog) 0 unit SC [facility] PRN Reason: Protocol Last Admin: 01/02/18 12:50 Dose: 3 unit Levothyroxine Sodium (Synthroid) 75 mcg PO DAILY@0630 [facility] Last Admin: 01/02/18 05:48 Dose: 75 mcg Losartan Potassium (Cozaar) 100 mg PO DAILY [facility] Last Admin: 01/02/18 10:31 Dose: 100 mg Metformin HCl (Glucophage) 500 mg PO DAILY@0800 [facility] Last Admin: 01/02/18 08:24 Dose: 500 mg Metolazone (Zaroxolyn) 5 mg PO DAILY [facility] Last Admin: 01/02/18 10:32 Dose: 5 mg Multivitamins (Hexavitamin) 1 tab PO DAILY [facility] Last Admin: 01/02/18 10:31 Dose: 1 tab Rosuvastatin Calcium (Crestor) 10 mg PO [facility] Last Admin: 01/01/18 21:51 Dose: 10 mg Sitagliptin Phosphate (Januvia) 100 mg PO [facility] Last Admin: 01/01/18 21:51 Dose: 100 mg Spironolactone (Aldactone) 25 mg PO DAILY [facility] Last Admin: 01/02/18 10:32 Dose: 25 mg Torsemide (Demadex) 20 mg PO DAILY [facility] Last Admin: 01/02/18 10:32 Dose: 20 mg - Labs Labs: 01/02/18 08:09 01/02/18 08:09 PT 12.3 SECONDS (9.7-12.2) H 12/29/17 13:38 INR 1.1 12/29/17 13:38 APTT 30 SECONDS (21-34) 12/29/17 13:38 - Constitutional Appears: Well - Head Exam Head Exam: ATRAUMATIC, NORMAL INSPECTION, NORMOCEPHALIC - Eye Exam Eye Exam: EOMI, Normal appearance, PERRL Pupil Exam: NORMAL ACCOMODATION, PERRL - ENT Exam ENT Exam: Mucous Membranes Moist, Normal Exam - Neck Exam Neck Exam: Full ROM, Normal Inspection. absent: Lymphadenopathy - Respiratory Exam Respiratory Exam: Decreased Breath Sounds - Cardiovascular Exam Cardiovascular Exam: REGULAR RHYTHM, +S1, +S2 - GI/Abdominal Exam GI & Abdominal Exam: Soft, Diminished Bowel Sounds - Rectal Exam Rectal Exam: Deferred
[2018-01-02 17:44] VITALS: BP 120/70
[2018-01-02 18:14] VITALS: PULSE 75
== END 2018-01-02 20:00 | disposition home or self-care (01) | DRG 291 ==
LOC: C.ER 13:00 → C.9E 15:22 → C.6T 16:27
PROVIDERS: ADMIT Internal Medicine Nephrology; ATTEND Internal Medicine Nephrology
DX: I13.0 Hypertensive heart and chronic kidney disease with heart failure and stage 1 through stage 4 chronic kidney disease, or unspecified chronic kidney disease (principal); I50.23 Acute on chronic systolic (congestive) heart failure; J44.9 Chronic obstructive pulmonary disease, unspecified; N18.2 Chronic kidney disease, stage 2 (mild); Z95.1 Presence of aortocoronary bypass graft; Z95.5 Presence of coronary angioplasty implant and graft; I25.10 Atherosclerotic heart disease of native coronary artery without angina pectoris; E78.00 Pure hypercholesterolemia, unspecified; E11.22 Type 2 diabetes mellitus with diabetic chronic kidney disease; E03.9 Hypothyroidism, unspecified; E11.9 Type 2 diabetes mellitus without complications; Z79.4 Long term (current) use of insulin